=== PATIENT | female | born 1975 | race Two or more races ===

== ENCOUNTER 2025-11-05 09:21 | Emergency (ER) | payer OTHER ==
[~2025-11-05] VITALS: Ht 165.1 cm; Wt 66.2 kg
[2025-11-05] MEDS ORDERED: FAMOTIDINE/PF 20 MG/2 ML VIAL IV STA (10:31)
[2025-11-05] MEDS ORDERED: 0.9 % SODIUM CHLORIDE 1,000 ML IV STA ×2 (10:31→13:06)
[2025-11-05] MEDS ORDERED: ONDANSETRON HCL 2 MG/ML VIAL IV STA (10:32)
[2025-11-05 11:33] LABS: BASO % 0.2 % (0.1-1.2); EOS # 0.05 (0.04-0.54); EOS % 0.6 % (0.7-7.0); LYMPH # 0.38 (1.18-3.74); LYMPH % 4.2 % (19.3-53.1); MEAN PLATELET VOLUME 10.10 fl (9.4-12.4); MONO # 0.14 (0.24-0.82); MONO % 1.6 % (4.7-12.5); NEUT # 8.35 (1.56-6.13); NEUT % 93.2 % (34.0-71.1); RED CELL DISTRIBUTION WIDTH 12.7 % (11.6-14.4)
[2025-11-05 11:38] LABS: ERYTHROCYTE SEDIMENTATION RATE 38 mm/hr (0-20)
[2025-11-05 11:43] LABS: INR 1.0
[2025-11-05 11:46] LABS: URINE APPEARANCE Clear; URINE BILIRRUBIN Negative (NEGATIVE); URINE BLOOD Moderate; URINE COLOR Yellow; URINE GLUCOSE Negative (NEGATIVE); URINE KETONE Negative (NEGATIVE); URINE LEUKOCYTE Small; URINE NITRATE Negative; URINE PROTEIN Trace (NEGATIVE); URINE UROBILINOGEN 0.2 E.U./dl
[2025-11-05 11:47] LABS: URINE BACTERIA 571.8 uL (0.0-1933); URINE EPITHELIAL CELLS 35.5 uL (0.0-38.8); URINE RBC 40.6 uL (0.0-20.8); URINE WBC 78.4 uL (0.0-23.2)
[2025-11-05 11:54] LABS: ALT/SGPT 51.0 U/L (12-78); AST/SGOT 22.0 U/L (15-37); BILIRUBIN TOTAL 0.92 mg/dL (0.3-1.2); BUN CREA RATIO 27.0 (7.0-25.0); CREATININE SERUM 0.74 mg/dL (0.55-1.02); GFR 83.07; GLOBULINA 4.0 G/DL (2.4-3.5); GLUCOSE FASTING 146.0 mg/dL (65-100); OSMOLALITY SERUM 288.0 MOSM/KG (275-295)
[2025-11-05 12:00] LABS: URINE CAST 0.14 uL (0.0-1.40)
[2025-11-05] MEDS ORDERED: CEFTRIAXONE SODIUM 1,000 MG VIAL IM STA (13:06)
[2025-11-05] MEDS ORDERED: PEPCID AC20 MG PO (14:27)
== END 2025-11-05 22:20 | disposition home or self-care (01) ==
LOC: ER 09:22
PROVIDERS: Physician Assistant Medical
DX: K52.89 Other specified noninfective gastroenteritis and colitis (principal); B34.8 Other viral infections of unspecified site; N39.0 Urinary tract infection, site not specified; E86.0 Dehydration